=== PATIENT | male | born 1955 | race Caucasian/White ===

== ENCOUNTER 2020-05-30 12:59 | Outpatient (CLI) | payer MEDICARE, BC | END 2020-05-30 13:00 | disposition home or self-care (01) | LOC: CSHMRI 12:59 | PROVIDERS: ATTEND Neurological Surgery | DX: C71.9 Malignant neoplasm of brain, unspecified (principal) | CPT/HCPCS: 70553; 82565 ==

== ENCOUNTER 2021-01-16 14:43 | Outpatient (CLI) | payer MEDICARE, BC | END 2021-01-16 14:44 | disposition home or self-care (01) | LOC: CSHMRI 14:43 | PROVIDERS: ATTEND Psychiatry & Neurology Neurology | DX: C71.9 Malignant neoplasm of brain, unspecified (principal); Z98.890 Other specified postprocedural states; H74.8X1 Other specified disorders of right middle ear and mastoid | CPT/HCPCS: 70553; 82565 ==

== ENCOUNTER 2021-04-14 08:45 | Outpatient (CLI) | payer MEDICARE, BC | END 2021-04-14 08:46 | disposition home or self-care (01) | LOC: CSHMRI 08:45 | PROVIDERS: ATTEND Psychiatry & Neurology Neurology | DX: C71.9 Malignant neoplasm of brain, unspecified (principal); Z98.890 Other specified postprocedural states | CPT/HCPCS: 70553 ==

== ENCOUNTER 2021-07-15 10:35 | Outpatient (CLI) | payer MEDICARE, BC | END 2021-07-15 10:36 | disposition home or self-care (01) | LOC: CSHMRI 10:35 | PROVIDERS: ATTEND Psychiatry & Neurology Neurology | DX: C71.9 Malignant neoplasm of brain, unspecified (principal); Z98.890 Other specified postprocedural states | CPT/HCPCS: 70553; 82565 ==

== ENCOUNTER 2021-10-26 09:41 | Outpatient (CLI) | payer MEDICARE, BC ==
[2021-10-26] MEDS ORDERED: Magnevist 469MG/ML 20 ML VIAL ONE (11:58)
== END 2021-10-26 09:42 | disposition home or self-care (01) ==
LOC: CSHMRI 09:41
PROVIDERS: ATTEND Psychiatry & Neurology Neurology
DX: C71.9 Malignant neoplasm of brain, unspecified (principal); Z98.890 Other specified postprocedural states; R90.89 Other abnormal findings on diagnostic imaging of central nervous system
CPT/HCPCS: 70553

== ENCOUNTER 2022-02-24 09:42 | Outpatient (CLI) | payer MEDICARE, BC | END 2022-02-24 09:43 | disposition home or self-care (01) | LOC: CSHMRI 09:42 | PROVIDERS: ATTEND Psychiatry & Neurology Neurology | DX: C71.9 Malignant neoplasm of brain, unspecified (principal); Z98.890 Other specified postprocedural states; R90.89 Other abnormal findings on diagnostic imaging of central nervous system | CPT/HCPCS: 70553; 82565 ==

== ENCOUNTER 2022-11-16 14:50 | Outpatient (CLI) | payer MEDICARE, BC ==
[~2022-11-16 14:50] MED LIST: Magnevist 469MG/ML 20 ML VIAL ONE
== END 2022-11-16 14:51 | disposition home or self-care (01) ==
LOC: CSHMRI 14:50
PROVIDERS: ATTEND Psychiatry & Neurology Neurology
DX: C71.9 Malignant neoplasm of brain, unspecified (principal); H74.8X1 Other specified disorders of right middle ear and mastoid; Z98.890 Other specified postprocedural states
CPT/HCPCS: 70553

== ENCOUNTER 2023-08-18 09:16 | Outpatient (CLI) | payer MEDICARE, BC ==
[2023-08-18] MEDS ORDERED: Magnevist 469MG/ML 20 ML VIAL ONE (12:35)
== END 2023-08-18 09:17 | disposition home or self-care (01) ==
LOC: CSHMRI 09:16
PROVIDERS: ATTEND Psychiatry & Neurology Neurology
DX: C71.9 Malignant neoplasm of brain, unspecified (principal); R94.02 Abnormal brain scan; Z98.890 Other specified postprocedural states
CPT/HCPCS: 70553; 82565; A9579

== ENCOUNTER 2024-10-23 14:11 | Outpatient (CLI) | payer MEDICARE, BC ==
[2024-10-23 14:46] LABS: Estimated GFR - POC 72.0
== END 2024-10-23 14:12 | disposition home or self-care (01) ==
LOC: CSHMRI 14:11
PROVIDERS: ATTEND Psychiatry & Neurology Neurology
DX: C71.9 Malignant neoplasm of brain, unspecified (principal); G93.9 Disorder of brain, unspecified; G93.89 Other specified disorders of brain; R90.82 White matter disease, unspecified
CPT/HCPCS: 36415; 70553; 76376; 82565

== ENCOUNTER 2024-12-03 13:07 | Outpatient (CLI) | payer MEDICARE, BC ==
[2024-12-03 14:01] LABS: Estimated GFR - POC 81.0
== END 2024-12-03 13:08 | disposition home or self-care (01) ==
LOC: CSHMRI 13:07
PROVIDERS: ATTEND Psychiatry & Neurology Neurology
DX: C71.9 Malignant neoplasm of brain, unspecified (principal); Z98.890 Other specified postprocedural states; G93.89 Other specified disorders of brain
CPT/HCPCS: 36415; 70553; 76376; 82565

== ENCOUNTER 2025-02-12 10:30 | Outpatient (CLI) | payer MEDICARE, BC | END 2025-02-12 10:31 | disposition home or self-care (01) | LOC: CSHMRI 10:30 | PROVIDERS: ATTEND Orthopaedic Surgery | DX: G95.9 Disease of spinal cord, unspecified (principal); M47.12 Other spondylosis with myelopathy, cervical region; M48.02 Spinal stenosis, cervical region; M50.00 Cervical disc disorder with myelopathy, unspecified cervical region | CPT/HCPCS: 72141 ==

== ENCOUNTER 2025-02-26 11:44 | Inpatient (IN) | payer MEDICARE, BC ==
[2025-02-26 12:29] LABS: #Basophils 0.04 10x3/uL (0.0-0.2); #Eosinophils 0.11 10x3/uL (0.0-0.5); #Monocytes 0.61 10x3/uL (0.0-1.1); #Neutrophils 3.49 10x3/uL (1.5-8.4); %Basophils 0.7 % (0.0-2.0); %Eosinophils 1.8 % (0.0-6.0); %Lymphocytes 29.8 % (18.0-47.0); %Monocytes 10.0 % (0.0-10.0); %Neutrophils 57.5 % (40.0-75.0); Hematocrit 36.4 % (38.8-50.0); Hemoglobin 12.4 g/dL (13.5-17.5); Mean Corpuscular Hemoglobin 32.3 pg (27.0-33.0); Mean Corpuscular Volume 94.8 fL (81.2-95.1); Platelet Count 320 10x3/uL (150-450); Red Blood Cell (RBC) Count 3.84 10x6/uL (4.32-5.72); White Blood Cell (WBC) Count 6.07 10x3/uL (3.5-10.5)
[2025-02-26 12:41] LABS: INR-International Normal Ratio 1.0; PTT 23.7 sec (22.0-33.0); Prothrombin Time 11.4 sec (9.5-12.1)
[2025-02-26 12:46] LABS: ALT (SGPT) 16 U/L (Less than 45); AST (SGOT) 19 U/L (11-34); Albumin 4.1 g/dL (3.1-4.5); Alkaline Phosphatase 74 U/L (40-110); Anion Gap 12 mmol/L (10-20); BUN (Urea Nitrogen) 17 mg/dL (8.4-25.7); Bilirubin, Total 0.4 mg/dL (0.3-1.2); Calc. Creatinine Clearance 0 mL/min (70-130); Calcium 9.7 mg/dL (7.8-10.44); Carbon Dioxide 24 mmol/L (23-31); Chloride 107 mmol/L (98-107); Globulin 2.6 g/dL (2.4-3.5); Glucose 123 mg/dL (80-115); Potassium 4.1 mmol/L (3.5-5.1); Sodium 139 mmol/L (136-145)
[2025-02-26 13:06] LABS: Magnesium 1.9 mg/dL (1.6-2.6)
[2025-02-26 13:12] LABS: Troponin I Less than 0.010 ng/mL (< 0.028)
[2025-02-26] MEDS ORDERED: Glucagon 1 MG/ML KIT IM PRN (15:15)
[2025-02-26] MEDS ORDERED: Dextrose 50% Abboject 50 ML SYRINGE SLOW IVP PRN (15:15)
[2025-02-26] MEDS ORDERED: hydrALAZINE 20 MG/ML VIAL SLOW IVP PRN (15:15)
[2025-02-26 17:50] VITALS: BMI 27.2
[2025-02-26] MEDS ORDERED: FLU (Fluad Triv) 25-26 (65UP)PF 45 MCG/0.5 ML Syringe IM ONE (18:15)
[2025-02-26] MEDS: Aspirin 81 mg Enteric Coated Tablet PO SCH (19:24)
[2025-02-26] MEDS: levETIRAcetam 500 MG TAB PO SCH (20:56)
[2025-02-26] MEDS: Apixaban 2.5 MG TAB PO SCH (20:56)
[2025-02-26] MEDS: Famotidine 20 MG TAB PO SCH (20:56)
[2025-02-26] MEDS: Melatonin 3 MG TAB PO PRN (21:02)
[2025-02-27 05:33] LABS: Cardiac Risk 5.6 (Less than 4.5); Cholesterol 134.0 mg/dl (< 200 Desired); HDL Cholesterol 24.0 mg/dL (>60 Neg Risk); LDL Cholesterol, Calculated 45.0 mg/dL; Triglycerides 326.0 mg/dL (Less than 150)
[2025-02-27] MEDS: Aspirin 81 mg Enteric Coated Tablet PO SCH (09:07)
[2025-02-27] MEDS: levETIRAcetam 500 MG TAB PO SCH (09:08)
[2025-02-27] MEDS: Acetaminophen 325 MG TAB PO PRN (09:09)
[2025-02-27] MEDS: Apixaban 5 MG TAB PO SCH (09:09)
[2025-02-27] MEDS: Ipratropium Bromide 2.5 ml Neb NEB SCH (12:54)
[2025-02-27] MEDS: Guaifenesin DM 100-10/5 ML UDCUP PO PRN (17:50)
[2025-02-27] MEDS ORDERED: Metoprolol Succinate XL 25 MG ER.TAB PO SCH (21:00)
[2025-02-28] MEDS: Ezetimibe 10 MG TAB PO SCH (10:07)
[2025-02-28] MEDS: Metoprolol Succinate XL 25 MG ER.TAB PO SCH (22:06)
[2025-02-28] MEDS: levETIRAcetam 500 MG TAB PO SCH (22:07)
[2025-02-28] MEDS: Senokot S 8.6-50 MG TAB PO PRN (22:09)
[2025-03-01 04:56] LABS: #Basophils 0.03 10x3/uL (0.0-0.2); #Eosinophils 0.15 10x3/uL (0.0-0.5); #Monocytes 0.90 10x3/uL (0.0-1.1); #Neutrophils 4.92 10x3/uL (1.5-8.4); %Basophils 0.4 % (0.0-2.0); %Eosinophils 1.9 % (0.0-6.0); %Lymphocytes 24.1 % (18.0-47.0); %Monocytes 11.4 % (0.0-10.0); %Neutrophils 62.1 % (40.0-75.0); Hematocrit 37.9 % (38.8-50.0); Hemoglobin 13.1 g/dL (13.5-17.5); Mean Corpuscular Hemoglobin 32.0 pg (27.0-33.0); Mean Corpuscular Volume 92.4 fL (81.2-95.1); Platelet Count 302 10x3/uL (150-450); Red Blood Cell (RBC) Count 4.10 10x6/uL (4.32-5.72); White Blood Cell (WBC) Count 7.92 10x3/uL (3.5-10.5)
[2025-03-01 05:11] LABS: Anion Gap 17 mmol/L (10-20); BUN (Urea Nitrogen) 13 mg/dL (8.4-25.7); Calc. Creatinine Clearance 121 mL/min (70-130); Calcium 9.4 mg/dL (7.8-10.44); Carbon Dioxide 21 mmol/L (23-31); Chloride 102 mmol/L (98-107); Glucose 137 mg/dL (80-115); Potassium 3.8 mmol/L (3.5-5.1); Sodium 136 mmol/L (136-145)
[2025-03-01] MEDS: Verapamil 180 MG ER.TAB PO SCH (09:54)
[2025-03-01 12:43] VITALS: BP 128/83; TEMP 99.2
== END 2025-03-01 14:52 | disposition home or self-care (01) | DRG 66 ==
LOC: CSHERS 11:44 → CSHTELE 15:15 → OBSVTOIN 02-27 16:08
PROVIDERS: ADMIT Student in an Organized Health Care Education/Training Program; ATTEND Internal Medicine
DX: I63.9 Cerebral infarction, unspecified (principal); E78.5 Hyperlipidemia, unspecified; E11.9 Type 2 diabetes mellitus without complications; I25.10 Atherosclerotic heart disease of native coronary artery without angina pectoris; F41.9 Anxiety disorder, unspecified; F32.A Depression, unspecified; R56.9 Unspecified convulsions; F17.210 Nicotine dependence, cigarettes, uncomplicated; R29.705 NIHSS score 5; I48.0 Paroxysmal atrial fibrillation; Z90.49 Acquired absence of other specified parts of digestive tract; Z95.5 Presence of coronary angioplasty implant and graft; Z79.82 Long term (current) use of aspirin; Z98.890 Other specified postprocedural states
CPT/HCPCS: 36415; 36416; 70496; 70498; 70551; 80048; 80053; 80061; 83605; 83735; 84484; 85025; 85610; 85730; 93005; 93306; 94760; J1815; J7644